=== PATIENT | female | born 1950 | race Caucasian/White ===

== ENCOUNTER → 2017-02-26 | Outpatient (CLI) | payer MEDICARE, BC ==
[~2017-02-26] MED LIST: CALCIUM600 MG PO; EYE VITAMIN PO; LISINOPRIL20 MG PO; LORTAB 5-325 M1 EACH PO; MOBIC15 MG PO; OSTEO BI-FLEX1 EACH PO; PLAQUENIL200 MG PO; PRILOSEC20 MG PO; SENOKOT S1 TAB PO; TYLENOL-DPS650 MG PO; ULTRAM DPS50 MG PO; XARELTO10 MG PO
== END | disposition home or self-care (01) ==
LOC: RAD.S 08:20
DX: Z12.31 Encounter for screening mammogram for malignant neoplasm of breast (principal)